=== PATIENT | male | born 1955 | race Asian ===

== ENCOUNTER 2020-04-30 08:11 | Emergency (ER) | payer OTHER ==
[~2020-04-30] VITALS: Ht 177.8 cm; Wt 97.5 kg
[2020-04-30 08:25] VITALS: BP 129/93
== END 2020-04-30 11:24 | disposition home or self-care (01) ==
LOC: ER 08:11
DX: Z00.00 Encounter for general adult medical examination without abnormal findings (principal); Z20.828 Contact with and (suspected) exposure to other viral communicable diseases
CPT/HCPCS: 36415; 87426; 99283; C9803; U0003

== ENCOUNTER 2020-09-10 10:57 | Day surgery (SDC) | payer OTHER ==
[~2020-09-10] VITALS: Ht 177.8 cm; Wt 99.8 kg
[~2020-09-10 10:57] MED LIST: AMLO-489 PO; ASPI-498 PO; DEXL60CA4 PO; EMPA1TAB PO; EZET10TA22 PO; FENO54TA4 PO
[2020-09-10] MEDS ORDERED: LIDOCAINE 2%HCL (LOCAL ANESTH.) INJ 20ML MDV ONE (12:25)
[2020-09-10] MEDS ORDERED: SODIUM CHL 0.9% 0 ML ONE (12:25)
[2020-09-10] MEDS ORDERED: VERAPAMIL 2.5MG/ML INJ 2ML VIAL IV ONE (12:25)
[2020-09-10] MEDS ORDERED: HEPARIN SODIUM (PORCINE) 5000 UNITS/ML 1ML VIAL ONE (12:25)
[2020-09-10] MEDS ORDERED: IODIXANOL 320MG/ML 100ML BTL IV ONE (12:25)
[2020-09-10] MEDS ORDERED: ANGIOMAX 250 MG VIAL IV ONE (12:25)
[2020-09-10] MEDS ORDERED: fentaNYL CITRATE 100 MCG/2 ML VL ONE (12:47)
[2020-09-10] MEDS ORDERED: MIDAZOLAM HCL 1MG/1ML-2 ML VIAL ONE (12:47)
[2020-09-10] MEDS ORDERED: ACETAMINOPHEN 500 MG TAB PO PRN (14:00)
[2020-09-10] MEDS ORDERED: ONDANSETRON HCL 4 MG/2 ML VIAL IV PRN (14:00)
== END 2020-09-10 16:30 | disposition home or self-care (01) ==
LOC: CATH 10:57
PROVIDERS: ATTEND Internal Medicine
DX: R94.39 Abnormal result of other cardiovascular function study (principal); I20.9 Angina pectoris, unspecified; I10 Essential (primary) hypertension; E78.5 Hyperlipidemia, unspecified; Z20.822 Contact with and (suspected) exposure to COVID-19; Z98.890 Other specified postprocedural states; Z79.899 Other long term (current) drug therapy; Z68.31 Body mass index [BMI] 31.0-31.9, adult; Z87.891 Personal history of nicotine dependence; Z79.82 Long term (current) use of aspirin
CPT/HCPCS: 71045; 93454; C1769; C1887; C1894; J1644; J2250; J7030; Q9967; U0003; 99152